=== PATIENT | female | born 1960 | race Caucasian/White ===

== ENCOUNTER 2018-01-24 14:01 | Emergency (ER) | payer OTHER ==
[2018-01-24] MEDS ORDERED: TETRACAINE OP ONE (14:31)
--- NOTE | 2018-01-25 00:37 | ED Physician Documentation ---
General Adult - HISTORIAN Historian: patient - HPI Stated Complaint: Sore R eye Chief Complaint: Eye Problems Additional Information: Patient states that she felt that she might have gotten something in her right eye while wearing contacts. Washed out and it felt better. This AM was worse, tearing, feels irritated, sensitive to light. Vision in the eye is worse then usual. Has taken her contacts out. No history of gluacoma. Timing: still present Severity: moderate Further Comments: no - ROS CONST: no problems. denies: fever, chills - PAST HX Past History: hypertension, other (anxiety) Surgeries/Procedures: hysterectomy, other (carpal tunnel, tendon release) Immunizations: referred to PCP Allergies/Adverse Reactions: Allergies Allergy/AdvReac Type Severity Reaction Status Date / Time Sulfa (Sulfonamide Allergy Verified 01/24/18 14:15 Antibiotics) Home Medications: Ambulatory Orders Medication Instructions Recorded Gentamicin Sulfate [Gentak 0.3% 2 drop OP Q6 #15 ml 01/24/18 Opth Samantha] HYDROcodone /APAP 5/325 [Anadarko 1 each PO Q4 #20 tablet 01/24/18 5/325] Lisinopril [Zestril] 1 tab PO BID 01/24/18 Paroxetine HCl [Paxil] 1 tab PO QDAY 01/24/18 Simvastatin [Zocor] 1 tab PO HS 01/24/18 amLODIPine BESYLATE [Norvasc] 1 tab PO QDAY 01/24/18 - SOCIAL HX Smoking History: non-smoker Alcohol Use: rarely Drug Use: none - FAMILY HX Family History: Yes - VITAL SIGNS Vital Signs: Vital Signs Temp Pulse Resp BP Pulse Ox 97.0 F L 17 L 168/94 01/24/18 14:12 01/24/18 14:12 01/24/18 14:12 - REVIEWED ASSESSMENTS Nursing Assessment Reviewed: Yes Vitals Reviewed: Yes General Adult Physical Exam - PHYSICAL EXAM GENERAL APPEARANCE: moderate distress EENT: eye inspection normal, ENT inspection normal, pharynx normal, other (mild conjunctival injected. No FB noted. Eye stained and was found to have corneal abrasion at 7 o'clock position. ) NECK: normal inspection, supple RESPIRATORY: no resp distress, chest non-tender, breath sounds normal CVS: reg rate & rhythm, heart sounds normal SKIN: warm/dry, normal color EXTREMITIES: non-tender NEURO: oriented X3, mood/affect nml, cognition normal Discharge Clincal Impression: Cornea abrasion Qualifiers: Encounter type: initial encounter Laterality: right Qualified Code(s): S05.01XA - Injury of conjunctiva and corneal abrasion without foreign body, right eye, initial encounter Prescriptions: Gentamicin Sulfate [Gentak 0.3% Opth Samantha] 2 drop OP Q6 #15 ml HYDROcodone /APAP 5/325 [[place]ad[place]o 5/325] 1 each PO Q4 #20 tablet Referrals: Primary Doctor,No [Primary Care Provider] - 2 Days Additional Instructions: Take hydrocodone/APAP every 4 hours as needed for pain. Drink a lot of fluids to help prevent constipation. Use antibioitc eye drops, (Gentak) 2 drops every 6 hours for 4-5 days. Do not put in conatacts until finished with antibiotic drops. If any further problems to return to the ED. Condition: Stable Disposition: 01 HOME, SELF-CARE Decision to Admit: [id number] Date of Decison to Admit: 01/24/18 Decision Time: 14:40
[2018-01-25 00:38] VITALS: BP 168/94
== END 2018-01-24 15:03 | disposition home or self-care (01) ==
LOC: ED 14:01
DX: S05.01XA Injury of conjunctiva and corneal abrasion without foreign body, right eye, initial encounter (principal); X58.XXXA Exposure to other specified factors, initial encounter; Y92.9 Unspecified place or not applicable; Y93.9 Activity, unspecified; Y99.9 Unspecified external cause status